=== PATIENT | male | born 1955 | race Caucasian/White ===

== ENCOUNTER 2018-08-20 14:47 | Observation (INO) | payer BC ==
[2018-08-20 15:31] LABS: #Lymphocytes 1.6 thou/uL (1.20-3.40); #Monocytes 0.4 thou/uL (0.11-0.59); #Neutrophils 3.4 thou/uL (1.40-6.50); %Basophils 0.5 % (0.0-1.0); %Eosinophils 0.6 % (0.0-10.0); %Lymphocytes 28.5 % (21.0-51.0); %Monocytes 7.8 % (0.0-10.0); %Neutrophils 62.5 % (42.0-75.0); Hemoglobin 14.9 g/dL (14.0-18.0); Mean Corpuscular HGB CONC 35.6 g/dL (32.0-36.0); Mean Corpuscular Hemoglobin 30.6 pg (27.0-31.0); Mean Corpuscular Volume 86.2 fL (78.0-98.0); Mean Platelet Volume 8.6 fL (7.4-10.4); Platelet Count 175 thou/uL (130-400); RBC Distribution Width 12.5 % (11.5-14.5); Red Blood Cell (RBC) Count 4.87 mill/uL (4.70-6.10); White Blood Cell (WBC) Count 5.5 thou/uL (4.8-10.8)
--- NOTE | 2018-08-20 15:51 | RAD ---
CHEST ONE VIEW: INDICATIONS: History of atrial fibrillation with dyspnea. COMPARISON: 05/04/2016 FINDINGS: There is stable focal eventration of the right hemidiaphragm. The lungs are clear. Vascular calcifi cations of the aorta are stable. The heart size is normal. No definite pleural effusion or pneumoth orax is evident. No acute osseous abnormality is noted. IMPRESSION: No acute cardiopulmonary abnormality. POS: DIETER
[2018-08-20 15:54] LABS: ALT (SGPT) 22 U/L (8-55); AST (SGOT) 19 U/L (5-34); Albumin 4.5 g/dL (3.4-4.8); Alkaline Phosphatase 77 U/L (40-150); Anion Gap 14 mmol/L (10-20); BUN (Urea Nitrogen) 11 mg/dL (8.4-25.7); Bilirubin, Total 1.1 mg/dL (0.2-1.2); Calc. Creatinine Clearance 0 mL/min (70-130); Calcium 9.4 mg/dL (7.8-10.44); Carbon Dioxide 24 mmol/L (23-31); Chloride 106 mmol/L (98-107); Estimated GFR-MDRD Greater than 90; Globulin 2.7 g/dL (2.4-3.5); Glucose 93 mg/dL (80-115); Potassium 3.8 mmol/L (3.5-5.1); Protein, Total 7.2 g/dL (5.8-8.1); Sodium 140 mmol/L (136-145)
[2018-08-20] MEDS ORDERED: Metoprolol Tartrate 5 MG/5 ML VIAL ONE (16:51)
[2018-08-20] MEDS ORDERED: Acetaminophen 325 MG TAB PO PRN (22:07)
[2018-08-20] MEDS ORDERED: Metoprolol Tartrate 5 MG/5 ML VIAL IVP PRN (22:08)
[2018-08-20] MEDS ORDERED: Enoxaparin Sodium 120 MG/0.8 ML SYRINGE SC SCH (22:15)
[2018-08-20 22:58] VITALS: BMI 34.2
--- NOTE | 2018-08-21 02:31 | HP ---
CHIEF COMPLAINT: Chest discomfort. HISTORY OF PRESENT ILLNESS: This patient is a 63-year-old male, who is a gasoline truck crane operator. The patient was here in 2016 with some chest pain, had an echo which was normal, and stress test which was negative. He was back again in April of 2016 at which time, he apparently had a brief run of SVT which spontaneously converted. At that time, the patient also had another stress test, which was also negative. The patient had a diagnosis of pericarditis on his original admission, secondary to some EKG findings only. 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 He has had a couple more episodes in both of his arms. They were brief and resolved spontaneously. The patient states that his noted that he was not feeling well yesterday, took his blood pressure last night and it was 164/119. He went to work nonetheless and then today went to his provider's office, where he was noted to be hypertensive and atrial fibrillation with rapid response. The patient was subsequently referred here to the hospital. He does admit to having episodes in which he has felt like his heart is fluttering and he feels dizzy, but it last 15-20 seconds and then resolve. The patient has not been diagnosed with atrial fibrillation in the past although he thought he had, but that was actually the SVT from his most recent visit. He has not been on any anticoagulation. He reports some shortness of breath, but it is primarily dyspnea on exertion. REVIEW OF SYSTEMS: The patient reports that he feels like his esophagus and "throat" get clogged at times. He reports this usually occurs after eating. Reports that it is usually 20 minutes or so after eating, and occasionally will cause him some coughing. He has no specific reflux and does not specifically feel like food is getting stuck in his esophagus. He does have dyspnea on exertion as mentioned for the past 3 to 4 days. He has had some deliberate weight loss and the patient has been taking some type of [id number] supplements in order to help him do that. He also reports that he has had some anxiety and depression related to some external stress. All other systems were reviewed and all pertinent positives and negatives noted in the history of present illness. PAST MEDICAL HISTORY: Notable for obstructive sleep apnea, hypertension, hyperlipidemia. PAST SURGICAL HISTORY: Skin cancer removed from the face. FAMILY HISTORY: Mother at 48 of CVA. Father of [place] at 72. SOCIAL HISTORY: The patient drinks 8 to 10 beers per week. He does not smoke. He does not do drugs. He is for over 40 years. His is his surrogate decision maker and he is full code. PHYSICAL EXAMINATION: VITAL SIGNS: The patient's presenting vital signs, BP 146/109, pulse 97 and regular, respirations 20, temperature 98, and O2 of 95% on room air. Recent vital signs, BP 137/94, pulse 86, respirations 20. GENERAL: The patient is obese. He is awake, alert, oriented, pleasant, and cooperative. He is somewhat difficult to get a straight history. HEENT: PERRL. No OP lesions. He does have a relatively small oral airway. NECK: Supple and symmetric without lymphadenopathy, JVD, or carotid bruits. HEART: Irregular rate and rhythm with no murmurs, gallops, or rubs. LUNGS: Clear to auscultation bilaterally with good chest wall expansion and air exchange. ABDOMEN: Soft, nontender, and nondistended. Positive bowel sounds. No masses. No organomegaly. EXTREMITIES: Warm and dry with no cyanosis, clubbing, or edema. SKIN: Unremarkable. Normal turgor. NEUROLOGIC: The patient has normal cognition. No focal deficits. PSYCH: The patient has normal affect and behavior. LABORATORY DATA: White count 5.5, hemoglobin 14.9, platelets 175. Sodium 140, potassium 3.8, chloride is 106, CO2 is 24, BUN 11, creatinine 0.82, total bilirubin 1.1, AST is 19, ALT 22. Troponin is 0.011, repeat is 0.011. Albumin 4.5. Chest x-ray negative. EKG shows atrial fibrillation with no ischemic changes. EMERGENCY ROOM COURSE: The patient received one dose of Lopressor in the emergency department, which did slow his heart rate and bring down his blood pressure a bit. IMPRESSION AND PLAN: 1. New onset atrial fibrillation. The patient will receive a dose of Lovenox. He currently has good rate control. He will have p.r.n. Lopressor ordered. He is going to receive full set of cardiac isoenzymes to ensure no myocardial injury. We will consult Cardiology and determine if they would like to do anything. Procedurally, he has had 2 negative stress tests in the last 4 years and an echo that looked relatively normal. We will go ahead and reorder the echocardiogram although if cardioversion is a consideration, may need SOHA. The patient appears to be fairly symptomatic from his atrial fibrillation. It is unclear if he is having episodes of tachycardia related to that. He is already on a beta toni and may need additional dosing. 2. Hypertension. The patient's blood pressure has been high throughout his medical course today. He may need to raise the dose of his oral metoprolol in order to maintain adequate rate control and blood pressure control. We will continue his metoprolol. We will give him a dose of valsartan. His notes indicate he is taking 160 mg twice a day. I will order those for the morning and clarify that so that he can have the second dose tomorrow if he needs it. 3. Hyperlipidemia. Continue with the simvastatin. 4. History of obstructive sleep apnea, stable. Job ID: [id number]
[2018-08-21 06:04] LABS: Anion Gap 12 mmol/L (10-20); BUN (Urea Nitrogen) 12 mg/dL (8.4-25.7); Calc. Creatinine Clearance 160 mL/min (70-130); Calcium 9.3 mg/dL (7.8-10.44); Carbon Dioxide 24 mmol/L (23-31); Chloride 107 mmol/L (98-107); Estimated GFR-MDRD Greater than 90; Glucose 94 mg/dL (80-115); Potassium 3.7 mmol/L (3.5-5.1); Sodium 139 mmol/L (136-145)
[2018-08-21] MEDS: Aspirin 81 mg Enteric Coated Tablet PO SCH (09:21)
[2018-08-21] MEDS: Valsartan 80 MG TAB PO SCH (09:21)
--- NOTE | 2018-08-21 17:30 | PDOC.PN ---
- Subjective Encounter Start Date: 08/21/18 Encounter Start Time: 17:28 Patient lying in bed, he reports feeling better, cardiology started roman on cardizem. He reports chest discomfort improved, denies shortness of breath, abdominal pain. - Objective Resuscitation Status - Order Detail: 08/20/18 22:07 Resuscitation Status Routine Resuscitation Status: FULL: Full Resuscitation MAR Reviewed: Yes Vital Signs & Weight: Vital Signs (12 hours) Temp Pulse Resp BP Pulse Ox 08/21/18 15:35 97.5 F L 99 24 H 137/81 96 08/21/18 11:51 98 F 90 16 152/92 H 95 08/21/18 08:00 98 F 84 16 140/97 H 95 Weight Weight 266 lb 9.6 oz I&O: 08/20/18 08/21/18 08/22/18 06:59 06:59 06:59 Intake Total 500 700 Balance 500 700 Result Diagrams: 08/20/18 15:22 08/21/18 05:17 Radiology Reviewed by me: Yes EKG Reviewed by me: Yes Phys Exam - Physical Examination Constitutional: NAD obese HEENT: PERRLA, moist MMs, oral pharynx no lesions, 2+ tonsils Neck: no nodes, no JVD, supple Respiratory: no wheezing, no rales, no rhonchi, clear to auscultation bilateral Cardiovascular: no significant murmur, no rub, irregular Gastrointestinal: soft, non-tender, no distention, positive bowel sounds Musculoskeletal: no edema, pulses present Neurological: non-focal, normal sensation, moves all 4 limbs Lymphatic: no nodes Psychiatric: normal affect, A&O x 3 Skin: no rash, normal turgor, cap refill <2 seconds Dx/Plan (1) Atrial fibrillation Code(s): I48.91 - UNSPECIFIED ATRIAL FIBRILLATION Status: Acute (2) Chest pain Code(s): R07.9 - CHEST PAIN, UNSPECIFIED Status: Acute (3) Dyslipidemia Code(s): E78.5 - HYPERLIPIDEMIA, UNSPECIFIED Status: Acute (4) Hypertension Code(s): I10 - ESSENTIAL (PRIMARY) HYPERTENSION Status: Acute - Plan cont current plan of care, DVT proph w/lovenox * Continue medical management and home medications * Troponin negative x3 * Start Lovenox 1mg/kg BID with goal to transition to oral anticoagulation prior to discharge * Cardiology services following, started cardizem * Monitor HR, vitals and labs * Further adjustments pending clinical findings.
[2018-08-21] MEDS ORDERED: Simvastatin 40 MG TAB PO SCH (21:00)
[2018-08-21] MEDS ORDERED: Enoxaparin Sodium 120 MG/0.8 ML SYRINGE SC SCH (21:00)
[2018-08-22] MEDS ORDERED: Apixaban 5 MG TAB PO SCH (09:00)
[2018-08-22] MEDS: Aspirin 81 mg Enteric Coated Tablet PO SCH (09:25)
[2018-08-22] MEDS: Valsartan 80 MG TAB PO SCH (09:25)
--- NOTE | 2018-08-22 09:32 | CON ---
DATE OF CONSULTATION: 08/21/2018 REASON FOR CONSULTATION: Atrial fibrillation. HISTORY OF PRESENT ILLNESS: Mr. Michel is a very pleasant 63-year-old with previous history of atrial fibrillation, status post ablation, who recently presented with atrial fibrillation with RVR. He states that he had palpitations, heart fluttering, and dizziness. No other associated abnormalities or precipitating factors present. He did complain of chest pain, but during my interview, chest pain appeared to have occurred several months ago. No new symptoms present. The patient is currently not on anticoagulation therapy. PAST MEDICAL HISTORY: Hypertension, hyperlipidemia, and obstructive sleep apnea. SOCIAL HISTORY: Positive alcohol use. No tobacco use. HOME MEDICATIONS: 1. Metoprolol. 2. Aspirin. 3. Valsartan. 4. Simvastatin. REVIEW OF SYMPTOMS: A 10-point review of systems is reviewed and as above, otherwise negative. PHYSICAL EXAMINATION: VITAL SIGNS: Blood pressure 135/93, pulse 83, and temperature afebrile. GENERAL: Patient is a pleasant male, who is in no acute distress. The patient appears their stated age. NEUROLOGIC: The patient is alert and oriented x3 with no focal neurologic deficits. HEENT: Sclerae without icterus. Mouth has moist mucous membranes with normal pallor. NECK: No JVD. Carotid upstroke brisk. No bruits bilaterally. LUNGS: Clear to auscultation with unlabored respirations. BACK: No scoliosis or kyphosis. CARDIAC: Irregularly irregular. ABDOMEN: Soft, nontender, nondistended. No peritoneal signs present. No hepatosplenomegaly. No abnormal striae. EXTREMITIES: 2+ femoral and 2+ dorsalis pedis pulses. No cyanosis, clubbing, or edema. SKIN: No gross abnormalities. LABORATORY DATA: Hemoglobin 14.9. Creatinine 0.8. Troponin negative. DIAGNOSTIC DATA: EKG shows atrial fibrillation with nonspecific ST-T wave changes. IMPRESSION: Atrial fibrillation. RECOMMENDATIONS: Mr. Michel's symptoms likely related to atrial fibrillation. He appears to be well controlled. The patient did ambulate in the pond with increased heart rate in the 130s to 140s. We would recommend calcium-channel blockade short-acting and change to long-acting. Overall, LVEF does appear normal. If he does ambulate after being placed on Cardizem, tomorrow will be okay from my standpoint to discharge home with close outpatient followup. Job ID: [id number]
[2018-08-22 12:25] VITALS: BP 132/82; TEMP 97.6
--- NOTE | 2018-08-22 19:08 | PDOC.CTH ---
Cardiology Progress Note - Subjective Doing well today. Ambulated with controlled HR - Objective Vital Signs Temp Pulse Resp BP Pulse Ox 08/22/18 11:50 97.6 F 78 16 132/82 93 L 08/22/18 07:20 97.4 F L 78 20 139/93 H 97 Weight 266 lb 4.8 oz 08/21/18 08/22/18 08/23/18 06:59 06:59 06:59 Intake Total 500 940 Balance 500 940 - Physical Examination General/Neuro: alert & oriented x3, NAD Neck: carotid US brisk, no JVD present Lungs: unlabored respirations Heart: other: (irr) Abdomen: NT/ND, soft Extremities: + femoral B - Labs Result Diagrams: 08/20/18 15:22 08/21/18 05:17 Troponin/CKMB Troponin I Less than 0.010 ng/mL (< 0.028) 08/20/18 21:42 - Assessment/Plan afib on CCB, ACT R/B of ACT discussed Change po CCB to 180mg cardizem QAM fu with me in 1-2 weeks
--- NOTE | 2018-08-25 21:26 | EKG ---
Test Reason : A FIB RVR Blood Pressure : / mmHG Vent. Rate : 094 BPM Atrial Rate : 098 BPM P-R Int : 000 ms QRS Dur : 090 ms QT Int : 364 ms P-R-T Axes : 000 001 -17 degrees QTc Int : 455 ms Atrial fibrillation with premature ventricular or aberrantly conducted complexes Abnormal ECG Confirmed by NITHIN SANTORO ([id number]), manuscript editor JANET JEAN ([id number]) on 08/25/2018 9:25:33 PM Referred By: Confirmed By:NITHIN SANTORO
== END 2018-08-22 14:45 | disposition home or self-care (01) ==
LOC: ERS 14:47 → ERHOLD 16:49 → 2SW 22:47
PROVIDERS: ADMIT Emergency Medicine; ATTEND Emergency Medicine
DX: I48.91 Unspecified atrial fibrillation (principal); I10 Essential (primary) hypertension; E78.5 Hyperlipidemia, unspecified; G47.33 Obstructive sleep apnea (adult) (pediatric); Z79.82 Long term (current) use of aspirin; Z79.899 Other long term (current) drug therapy
CPT/HCPCS: 36415; 71045; 80048; 80053; 84484; 85025; 93005; 93306; 96372; 96374; G0378; J1650

== ENCOUNTER 2018-10-30 09:52 | Day surgery (SDC) | payer BC ==
[2018-10-29 12:12] VITALS: BMI 33.3
[~2018-10-30 09:52] MED LIST: PROPOFOL 200 MG/20 ML VIAL ONE
[2018-10-30] MEDS ORDERED: Glycopyrrolate 0.2 MG/ML 5 ML SYRINGE ONE (12:19)
[2018-10-30] MEDS ORDERED: PROPOFOL 20 ML ONE (12:19)
--- NOTE | 2018-11-02 09:14 | TCOM ---
DATE OF STUDY: 10/30/2018 PREPROCEDURE DIAGNOSIS: Atrial fibrillation. POSTPROCEDURE DIAGNOSIS: Sinus rhythm. PROCEDURE PERFORMED: Synchronized external cardioversion. DESCRIPTION OF PROCEDURE: The patient was consented for the procedure. I discussed procedure in detail with Mr. Michel. Risks included, but not limited to the following: Stroke, need for repeat cardioversion, failed cardioversion, as well as the need for a pacemaker. All questions were answered. The patient did state he has not missed a single dose of anticoagulation therapy over the last 4 weeks. Conscious sedation performed with propofol. Synchronized cardioversion performed with 150 joules successfully. IMPRESSION: Successful synchronized cardioversion. Job ID: [id number]
--- NOTE | 2018-11-02 16:32 | EKG ---
Test Reason : POST CARDIOVERSION Blood Pressure : / mmHG Vent. Rate : 064 BPM Atrial Rate : 064 BPM P-R Int : 218 ms QRS Dur : 094 ms QT Int : 432 ms P-R-T Axes : 005 013 -01 degrees QTc Int : 445 ms Sinus rhythm with 1st degree A-V block Otherwise normal ECG When compared with ECG of 20-AUG-2018 14:57, Sinus rhythm has replaced Atrial fibrillation Confirmed by DR. Octavio SANDOVAL ([id number]) on 11/02/2018 4:32:19 PM Referred By: MIKE Confirmed By:DR. Octavio SANDOVAL
== END 2018-10-30 13:40 | disposition home or self-care (01) ==
LOC: CCL 09:52
PROVIDERS: ATTEND Internal Medicine Cardiovascular Disease
PROC: 5A2204Z Restoration of Cardiac Rhythm, Single (ICD-10-PCS; principal; 2018-10-30)
DX: I48.1 Persistent atrial fibrillation (principal); G47.33 Obstructive sleep apnea (adult) (pediatric); I10 Essential (primary) hypertension; E78.5 Hyperlipidemia, unspecified; Z87.891 Personal history of nicotine dependence; Z79.01 Long term (current) use of anticoagulants; Z79.899 Other long term (current) drug therapy; Z99.89 Dependence on other enabling machines and devices
CPT/HCPCS: 92960; 93005; 93010; J2704

== ENCOUNTER 2019-06-12 20:36 | Observation (INO) | payer BC ==
--- NOTE | 2019-06-12 23:18 | PDOC.FPRHP ---
- History of Present Illness Chief Complaint: Headache, Difficulty speaking History of Present Illness: 64yo M presents to the ED as transfer from outside ED for recent hx of headache and speech difficulties. Pt stated that early this morning he woke up with a warm sensation to his right leg that slowly resolved throughout the morning. Later in the day while working pt noticed that he seemed to have troubles getting out his words. He denied any of his co-workers noticing any changes. Pt stated that later in the day he was on the road [place] when he developed an acute onset headache that was sharp and lasted approximately 7 seconds. 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 Initial work up included a head CT that showed a remote infarct with no acute findings. Pt is on eliquis for a history of a-fib that has been well controlled following cardioversion. At time of eval pt denied any continuation of his previous sx. No recent illnesses. - Allergies/Adverse Reactions Allergies Allergy/AdvReac Type Severity Reaction Status Date / Time No Known Drug Allergies Allergy Verified 10/29/18 12:12 - Home Medications Medication Instructions Recorded Confirmed Type Simvastatin [Zocor] 20 mg PO HS 05/04/16 06/13/19 History Apixaban [Eliquis] 5 mg PO BID #60 tab 08/22/18 06/13/19 Rx Amlodipine [Norvasc] 1 tab PO DAILY 10/29/18 06/13/19 History Flecainide Acetate 1 tab PO BID 10/29/18 06/13/19 History Metoprolol Succinate [Toprol XL] 1 tab PO DAILY 10/29/18 06/13/19 History Ubidecarenone [Co Q-10] 1 cap PO DAILY 10/29/18 06/13/19 History Olmesartan [Benicar] 5 mg PO DAILY 06/13/19 06/13/19 History - History PMHx: Afib, HTN, HLD, BEATRICE PSHx: Skin cancer removal FHx: Non contributory Social: Hx of dipping 1 can per day, quit 4 years ago, occasional alcohol, denies hx of drug use - Review of Systems General: denies: fever/chills, weight/appetite/sleep changes Eyes: denies: vision changes, other ENT: denies: nasal congestion, rhinorrhea Respiratory: denies: cough, shortness of breath Cardiovascular: denies: chest pain, edema Gastrointestinal: denies: nausea, vomiting, diarrhea Genitourinary: denies: incontinence, dysuria Skin: denies: rashes, lesions Neurological: reports: other (headache, paresthesias, speech difficulties) - Vital signs BP: 155/95, Pulse: 63, Resp: 19, Temp: 97.5 ORAL, Pain: 0, O2 sat: 97 on RA - Physical Exam Constitutional: NAD, awake, alert and oriented, well developed HEENT: normocephalic and atraumatic, grossly normal vision, grossly normal hearing, MMM Neck: supple, FROM Heart: RRR, normal S1/S2 Lungs: CTAB, no respiratory distress, good air movement Abdomen: soft, non-tender Musculoskeletal: normal structure, normal tone Neurological: no focal deficit, CN II-XII intact, normal sensation Skin: no rash/lesions, good turgor Heme/Lymphatic: no unusual bruising or bleeding, no purpura Psychiatric: good judgment and insight, intact recent and remote memory -Psychiatric: Anxious FMR H&P: A/P - Problem List (1) Atrial fibrillation Current Visit: No Status: Acute Code(s): I48.91 - UNSPECIFIED ATRIAL FIBRILLATION (2) Dyslipidemia Current Visit: No Status: Acute Code(s): E78.5 - HYPERLIPIDEMIA, UNSPECIFIED (3) Hypertension Current Visit: No Status: Acute Code(s): I10 - ESSENTIAL (PRIMARY) HYPERTENSION - Plan Speech Difficulties - Anxiety vs TIA - CT showing remote infarct - FLP and HbA1c to risk stratify - MRI brain ordered - Currently asx, neuro checks - Anticoagulated on Eliquis Atypical Headache - CT negative for acute findings - Sx resolved currently - Cont to monitor Atrial Fib - NSR currently - On eliquis Diet: Regular Code: Full Dispo: Admit to stroke obs for further neuro imaging and monitoring. Expected LOS <48hr FMR H&P: Upper Level - Plan Date/Time: 06/12/19 [id number] Elpidio Allred MD, have evaluated this patient and agree with findings/plan as outlined by event marketing intern resident. Pertinent changes/additions are listed here. Red Michel is a 64 year old M with a PMH of Atrial fibrillation on eliquis and flecainide, HTN, HLD who was transfered to [facility] from outside ED for stroke work up. Patient had acute onset of right leg warmness, difficulty word finding, confusion and headache. These symptoms have never occurred before. The right leg warmness started when he woke up in the morning and resolved within a few hours. The word finding difficulty occurred early afternoon and resolved within a few hours and the headache lasted 6-7 seconds while at work. Pt states that he has been adherent to his medication regimen. Denies any palpitations, lightheadedness, chest pain, dyspnea, n/v, abdominal pain. In the ED, BP was 155/92, vitals were otherwise stable and wnl. CBC and CMP were unremarkable, TSH was normal, PT/INR wnl, UA negative. CT brain showed chronic ischemic changes, CXR was negative. EKG showed NSR, no ST changes, not in A fib. Patient being admitted for TIA r/o, admit to obs/stroke. Will order Brain MRI and carotid doppler. Checking FLP in the AM. Continue aspirin and statin. Anticipate hospital stay < 48 hours and d/c home. Please see event marketing intern note above for full H&P, which I have reviewed and agree with.
[2019-06-13] MEDS ORDERED: Ondansetron PF 4 MG/2 ML Vial IVP PRN (00:19)
[2019-06-13] MEDS ORDERED: Ondansetron ODT 4 MG TAB SL PRN (00:19)
[2019-06-13] MEDS ORDERED: Acetaminophen 325 MG TAB PO PRN ×2 (00:19→00:52)
[2019-06-13 00:23] VITALS: BMI 32.8
[2019-06-13 06:54] LABS: Cardiac Risk 4.6 (Less than 4.5)
[2019-06-13] MEDS ORDERED: Losartan 25 MG TAB PO SCH (09:00)
[2019-06-13] MEDS ORDERED: Olmesartan 5 MG TAB PO SCH (09:00)
[2019-06-13] MEDS ORDERED: Flecainide 50 MG TAB PO SCH ×2 (09:00)
[2019-06-13] MEDS ORDERED: Apixaban 5 MG TAB PO SCH (09:00)
[2019-06-13] MEDS ORDERED: Amlodipine 5 MG TAB PO SCH ×2 (09:00)
[2019-06-13] MEDS ORDERED: Ubidecarenone 50 MG CAP PO SCH (09:00)
[2019-06-13] MEDS ORDERED: UBIDECARENONE PO SCH (09:00)
--- NOTE | 2019-06-13 10:36 | ULT ---
BILATERAL CAROTID DUPLEX ULTRASOUND: HISTORY: Strokelike symptoms TECHNIQUE: Grayscale, color-flow and spectral Doppler ultrasound imaging of the extracranial carotid artery syst ems was performed bilaterally. FINDINGS: A small amount of plaque formation is seen on either side. The peak systolic velocity in the right ICA measures 99 cm/s with an end-diastolic velocity of 35 cm/ s and a systolic ratio of 0.73. The peak systolic velocity in the left ICA measures 125 cm/s with an end-diastolic velocity of 46 cm/s and a systolic ratio of 0.99. Flow in both vertebral arteries remains antegrade. IMPRESSION: Moderate (50-69%) stenosis of the left ICA
[2019-06-13 11:34] VITALS: BP 151/77; TEMP 97.9
--- NOTE | 2019-06-13 11:39 | MRI ---
MRI BRAIN WITHOUT CONTRAST: HISTORY: Stroke. Headache FINDINGS: No restricted diffusion is seen. There are multiple foci of T2 prolongation in the periventricular wh ite matter, consistent with chronic small vessel ischemic disease. The ventricular size is appropriate and the basilar cisterns are patent. No evidence of acute infarct, hemorrhage, midline shift or abnormal extra-axial fluid collections is seen. The visualized paranasal sinuses are well-aerated. There is fluid in the mastoid air cells. IMPRESSION: No evidence of acute intracranial process.
--- NOTE | 2019-06-13 11:49 | HP ---
I have discussed the case with Dr. Abdoulaye Yee and agree with his assessment and plan. HISTORY OF PRESENT ILLNESS: Mr. Michel has been having some problems with headache and speech difficulties, particularly "word finding." He presented to our ER with a possible TIA/CVA workup. PHYSICAL EXAMINATION: GENERAL: On exam, blood pressure is 155/90, pulse rate 63, respirations 18, temperature 98.6, and O2 saturation 97% on room air. GENERAL: He is awake, alert, and oriented. EAR, NOSE, AND THROAT: No signs of trauma. NECK: Supple. CARDIAC: Heart rhythm regular. No gallop or murmur. LUNGS: Clear without rales or wheezes. ABDOMEN: Flat, soft. NEUROLOGIC: No focal deficits. LABORATORY DATA: Triglycerides 187, cholesterol 129, LDL 65, HDL 28. He also has a history of intermittent atrial fibrillation. IMPRESSION: Possible transient ischemic attack. PLAN: Admit for workup. Job ID: [id number]
[2019-06-13] MEDS ORDERED: Atorvastatin Calcium 10 MG TAB PO SCH (21:00)
[2019-06-13] MEDS ORDERED: Simvastatin 40 MG TAB PO SCH (21:00)
--- NOTE | 2019-06-14 07:58 | DIS ---
DATE OF ADMISSION: 06/13/2019 DATE OF DISCHARGE: 06/13/2019 RESIDENT: Dr. Reinaldo Hernandez. ADMITTING ATTENDING: Dr. Jcarlos Borjas. DISCHARGE ATTENDING: Dr. Jeff Rebollar. CONSULTS: None. PROCEDURES: 1. Brain MRI on 06/13/2019 demonstrating no evidence of acute intracranial process. 2. 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 PRIMARY DIAGNOSIS: Anxiety versus atypical headache with rule out CVA. SECONDARY DIAGNOSES: 1. Atrial fibrillation. 2. Hypertension. 3. Hyperlipidemia. DISCHARGE MEDICATIONS: 1. Simvastatin 20 mg p.o. at bedtime. 2. Eliquis 5 mg p.o. b.i.d. 3. Norvasc 5 mg one tablet p.o. daily. 4. Flecainide 50 mg one tablet p.o. b.i.d. 5. Metoprolol succinate 50 mg one tablet p.o. daily. 6. CoQ10 at 200 mg one capsule p.o. daily. 7. Benicar 5 mg p.o. daily. DISCONTINUED MEDICATIONS: None. HISTORY OF PRESENT ILLNESS AND HOSPITAL COURSE: The patient is a pleasant 64-year-old male with history of hypertension, hyperlipidemia, and atrial fibrillation, status post conversion, on anticoagulation, who presented to the ED as a transfer from an outside emergency department for symptoms of headache and speech difficulties. The patient stated that early in the morning, he woke up with a warm sensation to the right leg, this slowly resolved. Later in the day, while at work, the patient did have trouble getting his words out. States that his coworkers did not notice any of these changes. The patient said that later on in the day, while driving, he developed an acute onset of headache that was sharp and lasted approximately 7 seconds. This concerned the patient, so he called his who brought him to the emergency department. An initial workup at that emergency department with a head CT that showed a remote infarct with no acute findings per report. The patient is on Eliquis for history of atrial fibrillation that has been well controlled following cardioversion. At the time of presentation, patient denied any continuation of previous symptoms and no recent illnesses. Patient does note that he has been increasingly anxious lately and this could be related to his anxiety. The patient was admitted for further evaluation and management and CVA rule out. Once on the floor, the patient was monitored on telemetry with no acute events. Patient's home medications were continued for his chronic medical conditions. The patient had a carotid Doppler and MRI with findings as above. The patient did not have any return of symptoms. The patient's neurologic exam was unremarkable. Vital signs remained stable. The patient's fasting lipid panel was checked and within normal limits. After thorough discussion with the patient and family, based on symptoms and course, it was determined this is likely secondary to anxiety and/or atypical headache. The patient was negative for CVA and unlikely to be a TIA. It was discussed with the patient and family that in regard to prevent future cardiovascular events, the ultimate goal is chronic disease management and risk stratification. The patient should continue to follow up with his primary care physician for control of his hypertension, hyperlipidemia, and additional risk factors. It is recommended the patient stay on Eliquis for his paroxysmal atrial fibrillation. Discharge plan was discussed at length with patient and family who voiced agreement and understanding of discharge plan. Return precautions were given. All questions were answered appropriately. DISPOSITION: Stable. DISCHARGE INSTRUCTIONS.: 1. Location: Home. 2. Diet: Heart healthy, low-sodium. 3. Activity: As tolerated. 4. Followup. The patient is to follow up with primary care physician within 7 days of discharge. Job ID: [id number]
== END 2019-06-13 13:30 | disposition home or self-care (01) ==
LOC: ERS 20:36 → 2SW 06-13 00:08
PROVIDERS: ADMIT Emergency Medicine; ATTEND Emergency Medicine
DX: F41.9 Anxiety disorder, unspecified (principal); R51 Headache; I10 Essential (primary) hypertension; E78.5 Hyperlipidemia, unspecified; I48.0 Paroxysmal atrial fibrillation; G47.33 Obstructive sleep apnea (adult) (pediatric); Z79.01 Long term (current) use of anticoagulants; Z79.899 Other long term (current) drug therapy
CPT/HCPCS: 36415; 70551; 80061; 93880; 94760; G0378

== ENCOUNTER 2020-10-15 12:52 | Outpatient (CLI) | payer BC, OTHER ==
[2020-10-15] MEDS ORDERED: Iopamidol 370 76% 100 ML VIAL ONE (13:17)
[2020-10-15 13:18] LABS: Estimated GFR-MDRD - POC Greater than 90
== END 2020-10-15 12:53 | disposition home or self-care (01) ==
LOC: BICCT 12:52
PROVIDERS: ATTEND Internal Medicine Cardiovascular Disease
DX: I77.810 Thoracic aortic ectasia (principal)
CPT/HCPCS: 71275; 82565; Q9967

== ENCOUNTER 2023-08-04 09:15 | Outpatient (CLI) | payer BC | END 2023-08-04 09:16 | disposition home or self-care (01) | LOC: CT 09:15 | PROVIDERS: ATTEND Internal Medicine Cardiovascular Disease | DX: I77.810 Thoracic aortic ectasia (principal) | CPT/HCPCS: 71275; 82565 ==

== ENCOUNTER 2023-09-25 05:43 | Day surgery (SDC) | payer MEDICARE, BC ==
[2023-09-22 10:18] VITALS: BMI 34.0
[2023-09-22 11:02] LABS: Hematocrit 39.8 % (38.8-50.0); Hemoglobin 14.2 g/dL (13.5-17.5); Mean Corpuscular HGB CONC 35.7 g/dL (32.0-36.0); Mean Corpuscular Hemoglobin 30.1 pg (27.0-33.0); Mean Corpuscular Volume 84.3 fl (81.2-95.1); Mean Platelet Volume 10.8 fl (7.4-10.4); Platelet Count 191 10x3/uL (150-450); Red Blood Cell (RBC) Count 4.72 10x6/uL (4.32-5.72); White Blood Cell (WBC) Count 5.5 10x3/uL (3.5-10.5)
[2023-09-22 11:17] LABS: PTT 29.4 sec (22.0-33.0); Prothrombin Time 10.9 sec (9.5-12.1)
[2023-09-22 11:37] LABS: Anion Gap 12 mmol/L (10-20); BUN (Urea Nitrogen) 13 mg/dL (8.4-25.7); Calc. Creatinine Clearance 149 mL/min (70-130); Calcium 9.4 mg/dL (7.8-10.44); Carbon Dioxide 23 mmol/L (23-31); Chloride 107 mmol/L (98-107); Estimated GFR 97; Glucose 157 mg/dL (80-115); Sodium 138 mmol/L (136-145)
[2023-09-25] MEDS ORDERED: Heparin 10,000 UNITS/ 10 ML VIAL ONE ×2 (06:49→09:25)
[2023-09-25] MEDS ORDERED: Heparin 25,000 units/D5W 500 ML ONE (06:50)
[2023-09-25] MEDS ORDERED: Protamine Sulfate 50 MG/5 ML VIAL ONE (06:50)
[2023-09-25] MEDS ORDERED: Isoproterenol 0.2 MG/1 ML AMP ONE (07:09)
[2023-09-25] MEDS ORDERED: SUGAMMADEX SODIUM 200 MG/2 ML VIAL ONE (07:55)
[2023-09-25] MEDS ORDERED: fentaNYL 50 mcg/mL 1 mL Vial ONE ×3 (07:56→12:37)
[2023-09-25] MEDS ORDERED: Midazolam HCl 2 mg/2 ml Vial ONE (07:56)
[2023-09-25] MEDS ORDERED: Rocuronium Bromide 10 MG/ML (10ML VIAL) ONE (08:12)
[2023-09-25] MEDS ORDERED: Ondansetron PF 4 MG/2 ML Vial ONE (08:12)
[2023-09-25] MEDS ORDERED: PHENYLEPHRINE-NS 100 MCG/ML 10 ML SYRINGE ONE (08:12)
[2023-09-25] MEDS ORDERED: ePHEDrine/0.9% NaCl/PF SYRINGE 50 mg/10 ml ONE (08:12)
[2023-09-25] MEDS ORDERED: Promethazine HCl 25 MG/ML VIAL IM PRN (08:35)
[2023-09-25] MEDS ORDERED: Ondansetron HCl/PF 4 MG/2 ML Vial IVP PRN (08:35)
[2023-09-25] MEDS ORDERED: HYDROmorphone 2 MG/ML VIAL SLOW IVP PRN (08:35)
[2023-09-25] MEDS ORDERED: Sevoflurane 250 ML INH ANEST BOTTLE ONE (12:15)
[2023-09-25] MEDS ORDERED: Amiodarone 150 MG/3 ML VIAL ONE (12:17)
== END 2023-09-25 17:30 | disposition home or self-care (01) ==
LOC: SDC 05:43
PROVIDERS: ATTEND Internal Medicine Cardiovascular Disease
PROC: 4A023FZ Measurement of Cardiac Rhythm, Percutaneous Approach (ICD-10-PCS; principal; 2023-09-25)
PROC: 4A0234Z Measurement of Cardiac Electrical Activity, Percutaneous Approach (ICD-10-PCS; 2023-09-25)
PROC: 02583ZZ Destruction of Conduction Mechanism, Percutaneous Approach (ICD-10-PCS; 2023-09-25)
DX: I48.0 Paroxysmal atrial fibrillation (principal); I10 Essential (primary) hypertension; G47.33 Obstructive sleep apnea (adult) (pediatric); E11.9 Type 2 diabetes mellitus without complications; I25.10 Atherosclerotic heart disease of native coronary artery without angina pectoris; E78.5 Hyperlipidemia, unspecified; E66.9 Obesity, unspecified; Z68.30 Body mass index [BMI] 30.0-30.9, adult; Z79.84 Long term (current) use of oral hypoglycemic drugs; Z79.899 Other long term (current) drug therapy; Z87.891 Personal history of nicotine dependence; Z79.01 Long term (current) use of anticoagulants
CPT/HCPCS: 80048; 85027; 85347 ×2; 85610; 85730; 93005; 93623; 93656; 93657; C1730; C1732; C1759; C1760; C1894 ×2; J3010; C2630; J0282; J1644; J2250; J2720

== ENCOUNTER 2023-09-27 19:35 | Emergency (ER) | payer MEDICARE, BC ==
[2023-09-27 20:49] LABS: #Monocytes 1.1 thou/uL (0.11-0.59); #Neutrophils 8.5 thou/uL (1.40-6.50); %Basophils 0.2 % (0.0-1.0); %Eosinophils 0.1 % (0.0-10.0); %Monocytes 9.6 % (0.0-10.0); %Neutrophils 75.8 % (42.0-75.0); Hematocrit 35.7 % (42.0-52.0); Hemoglobin 12.5 g/dL (14.0-18.0); Mean Corpuscular Hemoglobin 30.1 pg (27.0-31.0); Mean Platelet Volume 11.1 fL (7.4-10.4); Platelet Count 143 10x3/uL (130-400); RBC Distribution Width 13.2 % (11.5-14.5); Red Blood Cell (RBC) Count 4.15 mill/uL (4.70-6.10); White Blood Cell (WBC) Count 11.2 10x3/uL (4.8-10.8)
[2023-09-27 21:08] LABS: ALT (SGPT) 20 U/L (8-55); AST (SGOT) 27 U/L (5-34); Albumin 4.3 g/dL (3.4-4.8); Alkaline Phosphatase 80 U/L (40-110); Anion Gap 14 mmol/L (10-20); BUN (Urea Nitrogen) 14 mg/dL (8.4-25.7); Bilirubin, Total 1.3 mg/dL (0.2-1.2); Calc. Creatinine Clearance 0 mL/min (70-130); Calcium 9.2 mg/dL (7.8-10.44); Carbon Dioxide 23 mmol/L (23-31); Chloride 103 mmol/L (98-107); Estimated GFR 95; Globulin 2.7 g/dL (2.4-3.5); Glucose 207 mg/dL (80-115); Potassium 3.6 mmol/L (3.5-5.1); Sodium 136 mmol/L (136-145)
[2023-09-27 21:20] LABS: Critical Call Chem Troponin I NUR.MVB@2119; Troponin I 2.516 ng/mL (< 0.028)
[2023-09-27 23:17] LABS: SARS-CoV-2 NAA Rapid Test DETECTED (NotDetected)
[2023-09-27 23:47] LABS: Critical Call Chem Troponin I RESULT DECREASING; Troponin I 2.343 ng/mL (< 0.028)
== END 2023-09-28 01:30 | disposition home or self-care (01) ==
LOC: ERS 19:35
DX: U07.1 COVID-19 (principal); I10 Essential (primary) hypertension; I48.91 Unspecified atrial fibrillation; E66.9 Obesity, unspecified; Z87.891 Personal history of nicotine dependence
CPT/HCPCS: 71045; 80053; 84145; 84484 ×2; 85025; 87040; 87804 ×2; 93005; 93971; 99284; U0002; 36415

== ENCOUNTER 2023-12-25 10:04 | Day surgery (SDC) | payer MEDICARE, BC ==
[2023-12-22 09:36] VITALS: BMI 33.7
[2023-12-25 10:21] LABS: Hematocrit 38.5 % (42.0-52.0); Hemoglobin 13.4 g/dL (14.0-18.0); Mean Corpuscular HGB CONC 34.8 g/dL (32.0-36.0); Mean Corpuscular Hemoglobin 30.2 pg (27.0-31.0); Mean Corpuscular Volume 86.7 fL (78.0-98.0); Platelet Count 177 10x3/uL (130-400); RBC Distribution Width 13.7 % (11.5-14.5); Red Blood Cell (RBC) Count 4.44 mill/uL (4.70-6.10)
[2023-12-25 10:44] LABS: INR-International Normal Ratio 1.3; Prothrombin Time 16.5 sec (12.0-14.7)
[2023-12-25 10:45] LABS: PTT 35.3 sec (22.9-36.1)
[2023-12-25 10:50] LABS: Anion Gap 14 mmol/L (10-20); BUN (Urea Nitrogen) 12 mg/dL (8.4-25.7); Calc. Creatinine Clearance 154 mL/min (70-130); Calcium 9.4 mg/dL (7.8-10.44); Carbon Dioxide 23 mmol/L (23-31); Chloride 108 mmol/L (98-107); Estimated GFR 97; Glucose 120 mg/dL (80-115); Potassium 3.8 mmol/L (3.5-5.1); Sodium 141 mmol/L (136-145)
[2023-12-25] MEDS ORDERED: PROPOFOL 200 MG/20 ML VIAL ONE (11:42)
[2023-12-25] MEDS ORDERED: Lidocaine 1% PF 5 ML VIAL ONE (11:42)
== END 2023-12-25 12:32 | disposition home or self-care (01) ==
LOC: SDC 10:04
PROVIDERS: ATTEND Internal Medicine Cardiovascular Disease
PROC: 5A2204Z Restoration of Cardiac Rhythm, Single (ICD-10-PCS; principal; 2023-12-25)
DX: I48.0 Paroxysmal atrial fibrillation (principal); I10 Essential (primary) hypertension; G47.33 Obstructive sleep apnea (adult) (pediatric); E11.9 Type 2 diabetes mellitus without complications; E66.9 Obesity, unspecified; I71.20 Thoracic aortic aneurysm, without rupture, unspecified; I48.92 Unspecified atrial flutter; Z79.82 Long term (current) use of aspirin; Z79.899 Other long term (current) drug therapy; Z98.890 Other specified postprocedural states; Z79.84 Long term (current) use of oral hypoglycemic drugs; Z86.79 Personal history of other diseases of the circulatory system; Z68.33 Body mass index [BMI] 33.0-33.9, adult
CPT/HCPCS: 80048; 85027; 85610; 85730; 92960; 93005; 93010; J2704

== ENCOUNTER 2024-04-12 08:42 | Outpatient (CLI) | payer BC, MEDICARE ==
[2024-04-12 10:50] LABS: #Basophils 0.03 10x3/uL (0.0-0.2); %Basophils 0.5 % (0.0-1.0); %Lymphocytes 31.6 % (21.0-51.0); %Monocytes 8.7 % (0.0-10.0); %Neutrophils 57.7 % (42.0-75.0); Hematocrit 41.8 % (42.0-52.0); Hemoglobin 14.7 g/dL (14.0-18.0); Mean Corpuscular HGB CONC 35.2 g/dL (32.0-36.0); Mean Corpuscular Hemoglobin 29.3 pg (27.0-31.0); Mean Corpuscular Volume 83.3 fL (78.0-98.0); Mean Platelet Volume 11.2 fL (7.4-10.4); Platelet Count 189 10x3/uL (130-400); RBC Distribution Width 13.7 % (11.5-14.5); Red Blood Cell (RBC) Count 5.02 mill/uL (4.70-6.10)
[2024-04-12 11:03] LABS: INR-International Normal Ratio 1.2; Prothrombin Time 14.8 sec (12.0-14.7)
[2024-04-12 11:04] LABS: PTT 35.5 sec (22.9-36.1)
[2024-04-12 11:05] LABS: Anion Gap 12 mmol/L (10-20); BUN (Urea Nitrogen) 13 mg/dL (8.4-25.7); Calc. Creatinine Clearance 0 mL/min (70-130); Calcium 9.5 mg/dL (7.8-10.44); Carbon Dioxide 24 mmol/L (23-31); Chloride 108 mmol/L (98-107); Estimated GFR 97; Glucose 168 mg/dL (80-115); Potassium 3.6 mmol/L (3.5-5.1); Sodium 140 mmol/L (136-145)
== END 2024-04-12 08:43 | disposition home or self-care (01) ==
LOC: LABBT 08:42
PROVIDERS: ATTEND Internal Medicine Cardiovascular Disease
DX: Z01.812 Encounter for preprocedural laboratory examination (principal); I48.0 Paroxysmal atrial fibrillation
CPT/HCPCS: 80048; 85025; 85610; 85730

== ENCOUNTER 2025-04-01 10:35 | Emergency (ER) | payer MEDICARE, BC ==
[2025-04-01 11:23] LABS: #Basophils 0.03 10x3/uL (0.0-0.2); #Eosinophils 0.05 10x3/uL (0.0-0.7); #Monocytes 0.47 10x3/uL (0.11-0.59); #Neutrophils 5.55 10x3/uL (1.40-6.50); %Basophils 0.4 % (0.0-1.0); %Eosinophils 0.6 % (0.0-10.0); %Lymphocytes 21.6 % (21.0-51.0); %Monocytes 6.0 % (0.0-10.0); %Neutrophils 70.8 % (42.0-75.0); Hematocrit 42.5 % (42.0-52.0); Hemoglobin 14.5 g/dL (14.0-18.0); Mean Corpuscular Hemoglobin 29.1 pg (27.0-31.0); Mean Corpuscular Volume 85.2 fL (78.0-98.0); Platelet Count 183 10x3/uL (130-400); Red Blood Cell (RBC) Count 4.99 mill/uL (4.70-6.10); White Blood Cell (WBC) Count 7.84 10x3/uL (4.8-10.8)
[2025-04-01 11:40] LABS: Bacteria/HPF None Seen HPF (None Seen); CAUTI Indications for Culture Dysuria,urgency,freq; Glucose, Urine (Dipstick) 70 mg/dL (Negative); Leukocyte Negative Leu/uL (Negative); Protein, Urine (Dipstick) Negative (Neg-Trace); RBC/HPF 0-3 HPF (0-3); Specific Gravity, Urine 1.014 (1.002-1.036); WBC/HPF 0-3 HPF (0-3)
[2025-04-01 11:42] LABS: Urine Culture Reflex No No
[2025-04-01 11:55] LABS: ALT (SGPT) 19 U/L (Less than 45); AST (SGOT) 22 U/L (11-34); Albumin 4.7 g/dL (3.1-4.5); Alkaline Phosphatase 82 U/L (40-110); Anion Gap 14 mmol/L (10-20); BUN (Urea Nitrogen) 14 mg/dL (8.4-25.7); Bilirubin, Total 0.9 mg/dL (0.3-1.2); Calc. Creatinine Clearance 0 mL/min (70-130); Calcium 9.7 mg/dL (7.8-10.44); Carbon Dioxide 24 mmol/L (23-31); Chloride 105 mmol/L (98-107); Globulin 2.9 g/dL (2.4-3.5); Glucose 141 mg/dL (80-115); Potassium 3.8 mmol/L (3.5-5.1); Sodium 139 mmol/L (136-145)
== END 2025-04-01 14:45 | disposition home or self-care (01) ==
LOC: ERS 10:35
DX: I48.0 Paroxysmal atrial fibrillation (principal); I10 Essential (primary) hypertension; Z87.891 Personal history of nicotine dependence
CPT/HCPCS: 36415; 70450; 71045; 80053; 81001; 83880; 84484; 85025; 93005